=== PATIENT | female | born 1975 | race African-American/Black ===

== ENCOUNTER → 2017-05-30 | Outpatient (CLI) | payer SELFPAY ==
[~2017-05-30] MED LIST: BACTRIM DS TABL1 TA1 PO; BENADRYL25 M1 PO
== END | disposition home or self-care (01) ==
LOC: CBAR 12:26
DX: Z01.818 Encounter for other preprocedural examination (principal); E66.01 Morbid (severe) obesity due to excess calories
CPT/HCPCS: G0463